=== PATIENT | female | born 1970 | race African-American/Black ===

== ENCOUNTER 2019-10-28 07:31 | Emergency (ER) | payer MEDICAID ==
[~2019-10-28] VITALS: Ht 165.1 cm; Wt 73.0 kg
[~2019-10-28 07:31] MED LIST: LATA2.5D4
[2019-10-28 08:07] VITALS: BP 112/75
== END 2019-10-28 11:31 | disposition left against medical advice (07) ==
LOC: ER 07:31
DX: Z53.21 Procedure and treatment not carried out due to patient leaving prior to being seen by health care provider (principal)

== ENCOUNTER 2023-03-02 20:22 | Emergency (ER) | payer MEDICAID ==
[~2023-03-02] VITALS: Ht 175.3 cm; Wt 74.0 kg
[2023-03-02 20:52] VITALS: O2SAT 100
[2023-03-02] MEDS ORDERED: AMOX1TAB16 MT (23:57)
[2023-03-02] MEDS ORDERED: IBUP-2029 MT (23:57)
[2023-03-03] VITALS: BP 112/73; PULSE 66; RESP 18; TEMP 98.8
[2023-03-03] MEDS ORDERED: IBUPROFEN 600MG TABLET PO ONE
[2023-03-03] MEDS ORDERED: AMOXICILLIN/POTASSIUM CLAVULANATE 875/125MG TAB PO ONE
== END 2023-03-03 00:15 | disposition home or self-care (01) ==
LOC: ER 20:22
DX: K04.7 Periapical abscess without sinus (principal); F17.210 Nicotine dependence, cigarettes, uncomplicated; F12.10 Cannabis abuse, uncomplicated; F15.10 Other stimulant abuse, uncomplicated
CPT/HCPCS: 99283; 99406